=== PATIENT | male | born 1965 | race Caucasian/White ===

== ENCOUNTER 2022-02-13 08:34 | Inpatient (IN) | payer BC, OTHER ==
[~2022-02-13] VITALS: Ht 188 cm; Wt 119.5 kg
[2022-02-13 10:03] LABS: BASOPHILS # (AUTO) 0.1 X10'3 (0-0.2); BASOPHILS % (AUTO) 0.5 % (0-1); EOSINOPHILS # (AUTO) 0.6 X10'3 (0-0.9); EOSINOPHILS % (AUTO) 4.4 % (0-6); HEMATOCRIT 38.4 % (42.0-52.0); HEMOGLOBIN 12.6 g/dl (14.0-17.9); LYMPHOCYTES # (AUTO) 2.3 X10'3 (1.1-4.8); LYMPHOCYTES % (AUTO) 15.5 % (21-51); MEAN CORPUSCULAR HEMOGLOBIN 27.1 PG (27.0-31.0); MEAN CORPUSCULAR HGB CONC 32.7 g/dL (33.0-36.5); MEAN CORPUSCULAR VOLUME 82.7 FL (78-98); MEAN PLATELET VOLUME 8.7 FL (7.4-10.4); MONOCYTES # (AUTO) 1.2 X10'3 (0-0.9); MONOCYTES % (AUTO) 8.2 % (2-12); NEUTROPHILS # (AUTO) 10.4 X10'3 (1.8-7.7); NEUTROPHILS % (AUTO) 71.4 % (42-75); PLATELET COUNT 411 X10'3 (140-440); RED BLOOD COUNT 4.65 X10'6 (4.70-6.10); RED CELL DISTRIBUTION WIDTH 14.9 % (11.5-14.5); WHITE BLOOD COUNT 14.5 X10'3 (4.5-11.0)
[2022-02-13] MEDS ORDERED: CefTRIAXone 2gm/NS 100ml IVPB 100 ML IV ONE (10:10)
[2022-02-13 10:15] LABS: ALANINE AMINOTRANSFERASE 20 U/L (12-78); ALBUMIN 3.6 G/DL (3.4-5.0); ALBUMIN/GLOBULIN RATIO 0.8 (1.1-1.5); ALKALINE PHOSPHATASE 95 IU/L (46-116); ANION GAP 12 (8-16); ASPARTATE AMINO TRANSFERASE 11 U/L (10-37); BILIRUBIN,TOTAL 0.4 MG/DL (0.1-1.0); BLOOD UREA NITROGEN 27 MG/DL (7-18); BUN/CREATININE RATIO 21.3 (5.4-32.0); CALCIUM 9.1 MG/DL (8.5-10.1); CHLORIDE 108 MMOL/L (99-107); CREATININE 1.27 MG/DL (0.60-1.10); GLUCOSE 111 MG/DL (70-104); POTASSIUM 4.1 MMOL/L (3.5-5.1); SODIUM 144 MMOL/L (135-145); TOTAL CARBON DIOXIDE 23.7 MMOL/L (24-32); TOTAL PROTEIN 7.9 G/DL (6.4-8.2); eGFR 59 ML/MIN
[2022-02-13] MEDS ORDERED: morphine 4 MG/ML inj SYRINge IV ONE (10:30)
[2022-02-13] MEDS ORDERED: LORazepam 2 mg/ml vial IV ONE (10:30)
--- NOTE | 2022-02-13 11:05 | NUR ---
pt to ct
--- NOTE | 2022-02-13 11:10 | NUR ---
back from ct
[2022-02-13] MEDS ORDERED: vancomycin/NS 1 GM ADD-VANTAGE 250 ML IV ONE (12:55)
[2022-02-13] MEDS ORDERED: normal saline 1000ML IV soln IV ONE (12:55)
[2022-02-13] MEDS ORDERED: morphine 2 MG/ML inj. syringe IV PRN ×2 (13:05)
[2022-02-13] MEDS ORDERED: potassium CL 10mEq/100ml bag 100 ML IV PRN (13:05)
[2022-02-13] MEDS ORDERED: mag hydrox/Alum hydrox/simeth 30ml oral suspension PO PRN (13:05)
[2022-02-13] MEDS ORDERED: HYDROcodone/acetaminophen 5mg/325mg tablet PO PRN (13:05)
[2022-02-13] MEDS ORDERED: ondansetron/PF 4mg/2ml inj IV PRN (13:05)
[2022-02-13] MEDS ORDERED: POTASSIUM BICARB 20meq eff tab 20 MEQ TABLET.EFF PO PRN ×2 (13:05)
[2022-02-13] MEDS ORDERED: magnesium 4gm in 100ml NS 100 ML IV PRN (13:05)
[2022-02-13] MEDS ORDERED: magnesium hydroxide 30ml (MOM) UD suspension PO PRN (13:05)
[2022-02-13] MEDS ORDERED: acetaminophen 325mg tablet PO PRN (13:05)
[2022-02-13] MEDS ORDERED: magnesium 2GM in 50ml NS 50 ML IV PRN (13:05)
[2022-02-13] MEDS: normal saline 1000ml 1,000 ML IV SCH (13:34)
[2022-02-13] MEDS ORDERED: LOSA25TA96 PO (13:41)
[2022-02-13] MEDS: hydrALAZINE 20mg/ml inj. IV PRN (14:01)
[2022-02-13] MEDS: heparin, porcine 5000 units/ml vial SQ SCH (16:36)
--- NOTE | 2022-02-13 18:01 | NUR ---
called dr beltran regarding pt continued high blood pressure of 185/111 and no relief of pain after prn morphine was given. verbal orders received for 0.3mg clonidine x1 dose now for htn and 0.5mg of dilauded iv q4hrs prn mild-moderate pain and 1mg dilauded for severe pain q4h iv. orders placed as received
[2022-02-13] MEDS ORDERED: cloNIDine 0.1 mg tablet PO STA (18:03)
[2022-02-13] MEDS ORDERED: HYDROmorphone inj. 0.5 MG/0.5 ML DISP.SYRIN IV PRN (18:05)
[2022-02-13] MEDS: docusate sod 100mg capsule PO SCH (20:00)
[2022-02-13] MEDS: K and/or MAG REPLACEMENT MC SCH (20:00)
[2022-02-13] MEDS: piperacillin/tazo 4.5gm/100ml 100 ML IV SCH (20:03)
[2022-02-13] MEDS: HYDROmorphone 1 mg/ml syringe IV PRN (20:04)
--- NOTE | 2022-02-13 20:46 | NUR ---
PT PROVIDED MEDICATIONS AND MULTIMODAL PAIN MANAGMENT STRATEGIES. PT RESTING QUIETLY IN BED WITH . PT HAS NO COMPLAINTS AT THIS TIME. PT BP ALSO TRENDING MORE APPROPRIATELY WITH PAIN MANAGMENT AND MEDICINAL INTERVENTION PER DOCTOR.
[2022-02-13 23:20] VITALS: BP 164/112
[2022-02-14] MEDS ORDERED: vancomycin/NS 1 GM ADD-VANTAGE 250 ML IV SCH (01:00)
[2022-02-14] MEDS: normal saline 1000ml 1,000 ML IV SCH ×2 (02:03→17:51)
[2022-02-14] MEDS: HYDROmorphone 1 mg/ml syringe IV PRN ×3 (04:18→17:44)
[2022-02-14 06:00] VITALS: BP 130/67
[2022-02-14 06:00] LABS: BASOPHILS # (AUTO) 0.1 X10'3 (0-0.2); BASOPHILS % (AUTO) 0.7 % (0-1); EOSINOPHILS # (AUTO) 0.5 X10'3 (0-0.9); EOSINOPHILS % (AUTO) 4.2 % (0-6); HEMATOCRIT 31.3 % (42.0-52.0); HEMOGLOBIN 10.3 g/dl (14.0-17.9); LYMPHOCYTES # (AUTO) 2.6 X10'3 (1.1-4.8); LYMPHOCYTES % (AUTO) 20.7 % (21-51); MEAN CORPUSCULAR HEMOGLOBIN 27.5 PG (27.0-31.0); MEAN CORPUSCULAR VOLUME 83.3 FL (78-98); MEAN PLATELET VOLUME 9.2 FL (7.4-10.4); MONOCYTES % (AUTO) 7.8 % (2-12); NEUTROPHILS # (AUTO) 8.4 X10'3 (1.8-7.7); NEUTROPHILS % (AUTO) 66.6 % (42-75); PLATELET COUNT 318 X10'3 (140-440); RED BLOOD COUNT 3.75 X10'6 (4.70-6.10); RED CELL DISTRIBUTION WIDTH 14.4 % (11.5-14.5); WHITE BLOOD COUNT 12.7 X10'3 (4.5-11.0)
[2022-02-14 06:15] LABS: ALANINE AMINOTRANSFERASE 14 U/L (12-78); ALBUMIN 2.6 G/DL (3.4-5.0); ALBUMIN/GLOBULIN RATIO 0.7 (1.1-1.5); ALKALINE PHOSPHATASE 72 IU/L (46-116); ANION GAP 6 (8-16); ASPARTATE AMINO TRANSFERASE 8 U/L (10-37); BILIRUBIN,TOTAL 0.5 MG/DL (0.1-1.0); BLOOD UREA NITROGEN 13 MG/DL (7-18); BUN/CREATININE RATIO 13.5 (5.4-32.0); CALCIUM 7.7 MG/DL (8.5-10.1); CHLORIDE 109 MMOL/L (99-107); CREATININE 0.96 MG/DL (0.60-1.10); GLUCOSE 98 MG/DL (70-104); MAGNESIUM 1.8 MG/DL (1.5-2.4); POTASSIUM 3.8 MMOL/L (3.5-5.1); SODIUM 140 MMOL/L (135-145); TOTAL CARBON DIOXIDE 24.8 MMOL/L (24-32); TOTAL PROTEIN 6.1 G/DL (6.4-8.2); eGFR 82 ML/MIN
[2022-02-14] MEDS: K and/or MAG REPLACEMENT MC SCH ×2 (08:00→20:00)
[2022-02-14] MEDS ORDERED: cefTRIAXone 1g/NS 100ml IVPB 100 ML IV SCH (08:00)
[2022-02-14] MEDS: heparin, porcine 5000 units/ml vial SQ SCH ×4 (08:00→21:13)
[2022-02-14] MEDS: docusate sod 100mg capsule PO SCH ×2 (08:00→20:00)
[2022-02-14] MEDS: losartan 25mg tablet PO SCH (09:48)
[2022-02-14] MEDS: piperacillin/tazo 4.5gm/100ml 100 ML IV SCH (09:49)
[2022-02-14 10:00] VITALS: BP 171/97
[2022-02-14 18:00] VITALS: BP 189/104
--- NOTE | 2022-02-14 18:49 | NUR ---
Problems reprioritized. Patient report given, questions answered & plan of care reviewed with LUCIO Liriano.
--- NOTE | 2022-02-14 19:53 | NUR ---
pt states the guaze dressing on his sacral area usually has about 4 inch bloody drainage. will continue to report drainage to staff to document. RN at bedside. pt had biopsy earlier today and may have increased drainage. will notify RN of anything abnormal. pt refuses to allow assessment at this time. pt will have shower later tonight as well.
[2022-02-14] MEDS: HYDROcodone/acetaminophen 10/325mg tab PO PRN (21:09)
[2022-02-14 22:00] VITALS: BP 160/87
[2022-02-15] VITALS (9 sets, daily range): BP systolic 133–194; BP diastolic 73–111
[2022-02-15] MEDS ORDERED: VANCOMYCIN LEVEL IV ONE (00:30)
[2022-02-15] MEDS: normal saline 1000ml 1,000 ML IV SCH (02:24)
[2022-02-15] MEDS: HYDROcodone/acetaminophen 10/325mg tab PO PRN ×3 (05:33→21:35)
[2022-02-15 05:57] LABS: BASOPHILS % (AUTO) 0.6 % (0-1); EOSINOPHILS # (AUTO) 0.5 X10'3 (0-0.9); EOSINOPHILS % (AUTO) 5.4 % (0-6); HEMATOCRIT 34.7 % (42.0-52.0); LYMPHOCYTES # (AUTO) 1.6 X10'3 (1.1-4.8); LYMPHOCYTES % (AUTO) 18.4 % (21-51); MEAN CORPUSCULAR HEMOGLOBIN 26.1 PG (27.0-31.0); MEAN CORPUSCULAR HGB CONC 31.6 g/dL (33.0-36.5); MEAN CORPUSCULAR VOLUME 82.7 FL (78-98); MEAN PLATELET VOLUME 8.7 FL (7.4-10.4); MONOCYTES # (AUTO) 0.8 X10'3 (0-0.9); NEUTROPHILS # (AUTO) 5.9 X10'3 (1.8-7.7); NEUTROPHILS % (AUTO) 66.6 % (42-75); PLATELET COUNT 361 X10'3 (140-440); RED CELL DISTRIBUTION WIDTH 14.2 % (11.5-14.5); WHITE BLOOD COUNT 8.8 X10'3 (4.5-11.0)
[2022-02-15 06:15] LABS: ALANINE AMINOTRANSFERASE 13 U/L (12-78); ALBUMIN 2.7 G/DL (3.4-5.0); ALBUMIN/GLOBULIN RATIO 0.7 (1.1-1.5); ALKALINE PHOSPHATASE 77 IU/L (46-116); ANION GAP 8 (8-16); ASPARTATE AMINO TRANSFERASE 12 U/L (10-37); BILIRUBIN,TOTAL 0.2 MG/DL (0.1-1.0); BLOOD UREA NITROGEN 12 MG/DL (7-18); BUN/CREATININE RATIO 12.5 (5.4-32.0); CALCIUM 8.6 MG/DL (8.5-10.1); CHLORIDE 107 MMOL/L (99-107); CREATININE 0.96 MG/DL (0.60-1.10); GLUCOSE 108 MG/DL (70-104); MAGNESIUM 2.1 MG/DL (1.5-2.4); POTASSIUM 3.6 MMOL/L (3.5-5.1); SODIUM 142 MMOL/L (135-145); TOTAL CARBON DIOXIDE 26.6 MMOL/L (24-32); TOTAL PROTEIN 6.4 G/DL (6.4-8.2); eGFR 82 ML/MIN
--- NOTE | 2022-02-15 06:40 | NUR ---
Patient in room ORTHO 4007. I have received report from LUCIO Liriano and had the opportunity to ask questions and assume patient care.
[2022-02-15] MEDS: K and/or MAG REPLACEMENT MC SCH ×2 (08:00→21:35)
[2022-02-15] MEDS: docusate sod 100mg capsule PO SCH ×2 (09:13→21:34)
[2022-02-15] MEDS: losartan 25mg tablet PO SCH (09:14)
[2022-02-15] MEDS: heparin, porcine 5000 units/ml vial SQ SCH ×2 (09:15→15:48)
[2022-02-15] MEDS: hydrALAZINE 20mg/ml inj. IV PRN ×2 (09:16→15:48)
[2022-02-15] MEDS ORDERED: heparin sodium, porcine/PF 100unit/ml 5ML syringe ONE (13:26)
[2022-02-15] MEDS ORDERED: midazolam 1 mg/ML 2ml injection ONE ×2 (13:26→14:34)
[2022-02-15] MEDS ORDERED: fentaNYL/PF 50MCG/1 ML 2ML syringe ONE (13:26)
[2022-02-15] MEDS ORDERED: LIDOcaine 1%/PF 5ML 10 MG/ML VIAL ONE ×2 (13:26→14:54)
--- NOTE | 2022-02-15 13:50 | NUR ---
Pt transported to IR via sonam, accompanying. Belongings left in room 4002.
[2022-02-15] MEDS: HYDROmorphone 1 mg/ml syringe IV PRN (15:50)
[2022-02-15] MEDS ORDERED: PEG 3350/Na sulf,bicarb,Cl/KCl oral sol 4 liter bottle PO ONE (19:20)
[2022-02-16 04:00] VITALS: BP 167/92
[2022-02-16] MEDS: HYDROcodone/acetaminophen 10/325mg tab PO PRN (04:17)
[2022-02-16] MEDS: hydrALAZINE 20mg/ml inj. IV PRN ×2 (04:18→13:31)
--- NOTE | 2022-02-16 06:20 | NUR ---
reported to days. noted pt anticipates surgery today. NPO after CL breakfast
--- NOTE | 2022-02-16 06:36 | NUR ---
Patient in room ORTHO 4007. I have received report from LUCIO Liriano and had the opportunity to ask questions and assume patient care.
[2022-02-16] MEDS: docusate sod 100mg capsule PO SCH ×2 (07:02→20:00)
[2022-02-16] MEDS: heparin, porcine 5000 units/ml vial SQ SCH ×3 (07:02→16:00)
[2022-02-16 07:20] LABS: BASOPHILS # (AUTO) 0.1 X10'3 (0-0.2); BASOPHILS % (AUTO) 0.7 % (0-1); EOSINOPHILS # (AUTO) 0.4 X10'3 (0-0.9); EOSINOPHILS % (AUTO) 4.1 % (0-6); HEMATOCRIT 34.6 % (42.0-52.0); HEMOGLOBIN 11.7 g/dl (14.0-17.9); LYMPHOCYTES # (AUTO) 0.3 X10'3 (1.1-4.8); MEAN CORPUSCULAR HEMOGLOBIN 27.7 PG (27.0-31.0); MEAN CORPUSCULAR HGB CONC 33.9 g/dL (33.0-36.5); MEAN CORPUSCULAR VOLUME 81.9 FL (78-98); MEAN PLATELET VOLUME 8.8 FL (7.4-10.4); MONOCYTES # (AUTO) 0.8 X10'3 (0-0.9); NEUTROPHILS % (AUTO) 82.2 % (42-75); PLATELET COUNT 333 X10'3 (140-440); RED BLOOD COUNT 4.23 X10'6 (4.70-6.10); RED CELL DISTRIBUTION WIDTH 14.2 % (11.5-14.5); WHITE BLOOD COUNT 8.6 X10'3 (4.5-11.0)
[2022-02-16 07:49] LABS: ALANINE AMINOTRANSFERASE 19 U/L (12-78); ALBUMIN 3.1 G/DL (3.4-5.0); ALBUMIN/GLOBULIN RATIO 0.8 (1.1-1.5); ALKALINE PHOSPHATASE 81 IU/L (46-116); ANION GAP 10 (8-16); ASPARTATE AMINO TRANSFERASE 17 U/L (10-37); BILIRUBIN,TOTAL 0.3 MG/DL (0.1-1.0); BLOOD UREA NITROGEN 12 MG/DL (7-18); CALCIUM 8.7 MG/DL (8.5-10.1); CHLORIDE 104 MMOL/L (99-107); GLUCOSE 102 MG/DL (70-104); MAGNESIUM 1.7 MG/DL (1.5-2.4); POTASSIUM 3.5 MMOL/L (3.5-5.1); SODIUM 138 MMOL/L (135-145); TOTAL CARBON DIOXIDE 24.3 MMOL/L (24-32); TOTAL PROTEIN 7.2 G/DL (6.4-8.2); eGFR 78 ML/MIN
[2022-02-16] MEDS: K and/or MAG REPLACEMENT MC SCH (08:00)
[2022-02-16] MEDS: acetaminophen 325mg tablet PO PRN ×2 (08:31→14:59)
[2022-02-16] MEDS: losartan 25mg tablet PO SCH (08:32)
[2022-02-16 10:00] VITALS: BP 192/104
[2022-02-16 14:00] VITALS: BP 201/114
[2022-02-16] MEDS ORDERED: metroNIDAZOLE-Flagyl 500mg/NS 100 ML IV ONE (15:40)
[2022-02-16] MEDS ORDERED: LIDOcaine 1% W/epiNEPHrine 1:100,000 20ml vial ONE ×2 (15:41→21:16)
[2022-02-16] MEDS ORDERED: povidone-iodine 10% ointment 1 APPLIC APPLIC TP ONE (15:41)
[2022-02-16] MEDS ORDERED: tobramycin 40mg/ml inj ONE (15:41)
[2022-02-16] MEDS ORDERED: BUPIVAcaine/PF 2.5 mg/ml (0.25%) 30ml vial ONE ×2 (15:41→21:16)
[2022-02-16] MEDS ORDERED: CefTRIAXone 2000mg inj ONE (15:41)
--- NOTE | 2022-02-16 16:00 | NUR ---
report called to LUCIO Pacheco in recovery
[2022-02-16 16:01] VITALS: BP 201/114
--- NOTE | 2022-02-16 16:04 | NUR ---
pt transported to OR via hospital bed, belongings left in room 4007. present at bedside
[2022-02-16] MEDS ORDERED: morphine 4 MG/ML inj SYRINge IV PRN (16:35)
[2022-02-16] MEDS ORDERED: ringers solution, lacted 1,000 ML IV SCH (16:35)
[2022-02-16] MEDS ORDERED: morphine 2 MG/ML inj. syringe IV PRN (16:35)
[2022-02-16] MEDS ORDERED: meperidine/PF 25mg/ml syringe IV PRN ×3 (16:35)
[2022-02-16] MEDS ORDERED: proCHLORperazine 10 MG/2 ml inj IV PRN (16:35)
[2022-02-16] MEDS ORDERED: ondansetron/PF 4mg/2ml inj IV PRN (16:35)
[2022-02-16] MEDS: normal saline 1000ml 1,000 ML IV SCH (17:48)
--- NOTE | 2022-02-16 18:49 | NUR ---
Problems reprioritized. Patient report given, questions answered & plan of care reviewed with LUCIO Recinos.
--- NOTE | 2022-02-16 18:50 | NUR ---
I have received report from FLORENCIA VALDES and had the opportunity to ask questions. PATIENT IN OR AT THIS TIME FOR SURGERY
[2022-02-16] MEDS ORDERED: HYDROmorphone inj. 0.5 MG/0.5 ML DISP.SYRIN ONE (19:03)
[2022-02-16] MEDS: lisinopril 20mg tablet PO SCH (20:00)
[2022-02-16] MEDS ORDERED: MIDAZolam 1 MG/ML 5ML VIAL ONE (20:02)
[2022-02-16] MEDS ORDERED: propofol inj 20 ML IV ONE (20:03)
[2022-02-16] MEDS ORDERED: fentaNYL /PF 50mcg/ml 5ml ampule ONE (20:03)
[2022-02-16 20:20] VITALS: BP 208/131
[2022-02-16] MEDS ORDERED: rocuronium 10mg/ml inj IV ONE ×2 (21:45)
[2022-02-16] MEDS ORDERED: FENTANYL CITRATE/PF 50 MCG/1 ML VIAL ONE ×2 (23:41→23:42)
[2022-02-16] MEDS ORDERED: morphine 10mg/ml inj. ONE (23:41)
[2022-02-17] VITALS (27 sets, daily range): BP systolic 128–185; BP diastolic 61–106
[2022-02-17] MEDS ORDERED: neostigmine methylsulfate 1 MG/ML 10ml vial ONE (00:09)
[2022-02-17] MEDS ORDERED: glycopyrrolate 0.2mg/ml inj ONE (00:10)
--- NOTE | 2022-02-17 00:28 | NUR ---
Received from OR via BED, accompanied by Anesthesiologist DR WILLIAMSON and report given by Anesthesiologist AND ASSURANCE MANAGER INSURANCE. PT DROWSY, DENIES PAIN, ABDOMEN W/2 LAP SITES ON RIGHT SIDE W/DERMABOND CDI, COLOSTOMY W/BAG, NO DRAINAGE, STOMA PINK. ROBLERO CATHETER TO GRAVITY DRAINAGE W/YELLOW URINE IN DRAINAGE BAG. SCD'S APPLIED. Addendum: 02/17/22 at 0056 by Alice Galindo RN Amended: Links added.
[2022-02-17] MEDS ORDERED: naloxone 0.4 mg/ml inj IV PRN (01:40)
[2022-02-17] MEDS ORDERED: ondansetron/PF 4mg/2ml inj IV PRN (01:40)
[2022-02-17] MEDS: HYDROmorph/NS 0.2 mg/ml PCA 100 ML IV SCH ×11 (02:24→23:00)
--- NOTE | 2022-02-17 02:38 | NUR ---
Report called to receiving nurse. Transferred via BED, NO Belongings. RECEIVING RN AT BEDSIDE TO RECEIVE PT, BLL, CALL LIGHT GIVEN, SIDE RAILS. Special Issues communicated to receiving nurse. YES. Addendum: 02/17/22 at 0253 by Alice Galindo RN Amended: Links added.
--- NOTE | 2022-02-17 02:45 | NUR ---
PATIENT BACK TO ROOM 4007 FROM RECOVERY ROOM AFTER COLONOSCOPY, LAP ASSISTED COLOSTOMY, AND I&D OF JEFFREY RECTAL ABSCESS BY DR. HA. PLACED COMFORTABLE IN BED. VITAL SIGNS MONITORED.
[2022-02-17] MEDS ORDERED: HYDROmorph/NS 0.2 mg/ml PCA 100 ML IV SCH (03:00)
[2022-02-17] MEDS: normal saline 1000ml 1,000 ML IV SCH (03:00)
[2022-02-17] MEDS: K and/or MAG REPLACEMENT MC SCH ×3 (03:17→20:00)
[2022-02-17] MEDS: hydrALAZINE 20mg/ml inj. IV PRN ×2 (03:30→14:50)
[2022-02-17] MEDS: heparin, porcine 5000 units/ml vial SQ SCH ×4 (03:34→18:06)
[2022-02-17] MEDS: potassium CL 20mEq in D5-1/2NS 1,000 ML IV SCH ×3 (06:00→20:26)
--- NOTE | 2022-02-17 06:30 | NUR ---
Problems reprioritized. Patient report given, questions answered & plan of care reviewed with TERRIE RN.
--- NOTE | 2022-02-17 06:54 | NUR ---
Patient in room ORTHO 4007. I have received report from Grisel VALDES and had the opportunity to ask questions and assume patient care.
[2022-02-17 07:17] LABS: BASOPHILS % (AUTO) 0.4 % (0-1); EOSINOPHILS % (AUTO) 0 % (0-6); HEMATOCRIT 32.4 % (42.0-52.0); HEMOGLOBIN 10.8 g/dl (14.0-17.9); LYMPHOCYTES % (AUTO) 11.6 % (21-51); MEAN CORPUSCULAR HEMOGLOBIN 27.5 PG (27.0-31.0); MEAN CORPUSCULAR HGB CONC 33.4 g/dL (33.0-36.5); MEAN CORPUSCULAR VOLUME 82.3 FL (78-98); MEAN PLATELET VOLUME 8.6 FL (7.4-10.4); MONOCYTES # (AUTO) 0.8 X10'3 (0-0.9); MONOCYTES % (AUTO) 9.7 % (2-12); NEUTROPHILS # (AUTO) 6.4 X10'3 (1.8-7.7); NEUTROPHILS % (AUTO) 78.3 % (42-75); PLATELET COUNT 310 X10'3 (140-440); RED BLOOD COUNT 3.93 X10'6 (4.70-6.10); RED CELL DISTRIBUTION WIDTH 14.5 % (11.5-14.5); WHITE BLOOD COUNT 8.2 X10'3 (4.5-11.0)
[2022-02-17 07:33] LABS: ALANINE AMINOTRANSFERASE 25 U/L (12-78); ALBUMIN 2.6 G/DL (3.4-5.0); ALBUMIN/GLOBULIN RATIO 0.7 (1.1-1.5); ALKALINE PHOSPHATASE 63 IU/L (46-116); ANION GAP 12 (8-16); ASPARTATE AMINO TRANSFERASE 26 U/L (10-37); BILIRUBIN,TOTAL 0.2 MG/DL (0.1-1.0); BLOOD UREA NITROGEN 11 MG/DL (7-18); BUN/CREATININE RATIO 10.9 (5.4-32.0); CALCIUM 7.8 MG/DL (8.5-10.1); CHLORIDE 103 MMOL/L (99-107); CREATININE 1.01 MG/DL (0.60-1.10); GLUCOSE 106 MG/DL (70-104); MAGNESIUM 1.5 MG/DL (1.5-2.4); POTASSIUM 3.4 MMOL/L (3.5-5.1); SODIUM 139 MMOL/L (135-145); TOTAL CARBON DIOXIDE 24.5 MMOL/L (24-32); TOTAL PROTEIN 6.4 G/DL (6.4-8.2); eGFR 77 ML/MIN
[2022-02-17] MEDS ORDERED: lisinopril 20mg tablet PO SCH (08:00)
[2022-02-17] MEDS: docusate sod 100mg capsule PO SCH ×2 (09:22→20:26)
[2022-02-17] MEDS: lisinopril 20mg tablet PO SCH ×2 (09:25→20:27)
[2022-02-17] MEDS: cloNIDine 0.1 mg tablet PO SCH ×3 (09:25→20:27)
--- NOTE | 2022-02-17 10:37 | NUR ---
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 Pt now POD #1 s/p colonoscopy, laparoscopic colostomy, and I&D of left buttocks. Pt would benefit from colostomy nutrition therapy education once more stable. Pt on a clear liquid diet post-op, previously on a regular diet and documented with mostly 100% PO intake throughout LOS however currently unable to meet estimated nutrient needs d/t limitations on clear liquid diet. Recommend advancing to low fiber diet as medically indicated. No documented BM post-op. Pt receiving routine bowel care. Will continue to follow closely. Recommendations: 1) Advance to low fiber diet as medically indicated 2) Bowel care per MD 3) Scaled weight this admit; subsequent weekly scaled weights 4) Colostomy nutrition therapy education once appropriate Addendum: 02/17/22 at [address] Amended: Links added.
[2022-02-17] MEDS: acetaminophen 325mg tablet PO PRN (14:57)
--- NOTE | 2022-02-17 15:47 | NUR ---
Patient order for cadd changed was unable to find a super user, notified child care centre director of need to change setting and was given detailed instructions on the change process. Lost all information in the process.
--- NOTE | 2022-02-17 16:12 | NUR ---
Patient bedding changed and patient showered at this time.
--- NOTE | 2022-02-17 16:53 | NUR ---
Dressing changed at this time with patient family in room. Patient had moderated drainage from amalia drain, serosanguineous drainage noted.
--- NOTE | 2022-02-17 18:22 | NUR ---
Problems reprioritized. Patient report given, questions answered & plan of care reviewed with Grisel VALDSE.
--- NOTE | 2022-02-17 18:30 | NUR ---
Patient in room ORTH[facility] 4007. I have received report from TERRIE VALDES and had the opportunity to ask questions and assume patient care.
[2022-02-18] MEDS: HYDROmorph/NS 0.2 mg/ml PCA 100 ML IV SCH ×12 (01:00→22:44)
[2022-02-18] MEDS: heparin, porcine 5000 units/ml vial SQ SCH ×3 (01:10→16:00)
--- NOTE | 2022-02-18 06:26 | NUR ---
Problems reprioritized. Patient report given, questions answered & plan of care reviewed with TERRIE RN.
[2022-02-18 06:41] LABS: BASOPHILS % (AUTO) 0.4 % (0-1); EOSINOPHILS % (AUTO) 0.1 % (0-6); HEMATOCRIT 34.4 % (42.0-52.0); HEMOGLOBIN 11.1 g/dl (14.0-17.9); LYMPHOCYTES # (AUTO) 1.3 X10'3 (1.1-4.8); LYMPHOCYTES % (AUTO) 20.4 % (21-51); MEAN CORPUSCULAR HEMOGLOBIN 26.4 PG (27.0-31.0); MEAN CORPUSCULAR HGB CONC 32.4 g/dL (33.0-36.5); MEAN CORPUSCULAR VOLUME 81.5 FL (78-98); MONOCYTES # (AUTO) 0.6 X10'3 (0-0.9); MONOCYTES % (AUTO) 10.3 % (2-12); NEUTROPHILS # (AUTO) 4.3 X10'3 (1.8-7.7); NEUTROPHILS % (AUTO) 68.8 % (42-75); PLATELET COUNT 292 X10'3 (140-440); RED BLOOD COUNT 4.22 X10'6 (4.70-6.10); RED CELL DISTRIBUTION WIDTH 14.4 % (11.5-14.5); WHITE BLOOD COUNT 6.3 X10'3 (4.5-11.0)
[2022-02-18 06:48] LABS: ALANINE AMINOTRANSFERASE 21 U/L (12-78); ALBUMIN 2.7 G/DL (3.4-5.0); ALBUMIN/GLOBULIN RATIO 0.7 (1.1-1.5); ALKALINE PHOSPHATASE 61 IU/L (46-116); ANION GAP 7 (8-16); ASPARTATE AMINO TRANSFERASE 24 U/L (10-37); BILIRUBIN,TOTAL 0.3 MG/DL (0.1-1.0); BLOOD UREA NITROGEN 11 MG/DL (7-18); BUN/CREATININE RATIO 12.5 (5.4-32.0); CALCIUM 8.3 MG/DL (8.5-10.1); CHLORIDE 101 MMOL/L (99-107); CREATININE 0.88 MG/DL (0.60-1.10); GLUCOSE 107 MG/DL (70-104); MAGNESIUM 1.8 MG/DL (1.5-2.4); POTASSIUM 3.4 MMOL/L (3.5-5.1); SODIUM 135 MMOL/L (135-145); TOTAL CARBON DIOXIDE 27.1 MMOL/L (24-32); TOTAL PROTEIN 6.6 G/DL (6.4-8.2); eGFR 90 ML/MIN
[2022-02-18 06:49] VITALS: BP 151/95
--- NOTE | 2022-02-18 07:11 | NUR ---
Patient in room ORTHO 4007. I have received report from Grisel VALDES and had the opportunity to ask questions and assume patient care.
[2022-02-18] MEDS: K and/or MAG REPLACEMENT MC SCH ×2 (08:00→20:00)
[2022-02-18] MEDS: lisinopril 20mg tablet PO SCH ×2 (08:38→20:16)
[2022-02-18] MEDS: cloNIDine 0.1 mg tablet PO SCH ×3 (08:38→20:15)
[2022-02-18] MEDS: docusate sod 100mg capsule PO SCH ×2 (08:39→20:15)
[2022-02-18] MEDS: potassium CL 20mEq in D5-1/2NS 1,000 ML IV SCH (08:41)
[2022-02-18 10:00] VITALS: BP 179/96
[2022-02-18] MEDS: acetaminophen 325mg tablet PO PRN (10:33)
[2022-02-18] MEDS: hydrALAZINE 20mg/ml inj. IV PRN (10:38)
[2022-02-18] MEDS ORDERED: potassium Cl 20 mEq SR tablet PO STA (12:55)
[2022-02-18] MEDS: lactose-reduced food (Ensure Enlive) - 237ml bottle PO SCH (18:00)
--- NOTE | 2022-02-18 18:58 | NUR ---
Problems reprioritized. Patient report given, questions answered & plan of care reviewed with Chani VALDES.
[2022-02-18 19:30] VITALS: BP 154/95
[2022-02-18] MEDS: apixaban 2.5mg tablet PO SCH (20:16)
[2022-02-18 23:29] VITALS: BP 156/92
[2022-02-19] MEDS: HYDROmorph/NS 0.2 mg/ml PCA 100 ML IV SCH ×4 (01:00→07:00)
[2022-02-19] MEDS: PCA waste documentation MC SCH ×2 (01:02→11:05)
[2022-02-19] MEDS: normal saline 1000ml 1,000 ML IV SCH (01:40)
[2022-02-19 06:00] VITALS: BP 157/83
[2022-02-19 06:18] LABS: ALBUMIN 2.5 G/DL (3.4-5.0); ANION GAP 6 (8-16); BLOOD UREA NITROGEN 11 MG/DL (7-18); BUN/CREATININE RATIO 12.6 (5.4-32.0); CALCIUM 8.2 MG/DL (8.5-10.1); CHLORIDE 99 MMOL/L (99-107); CREATININE 0.87 MG/DL (0.60-1.10); GLUCOSE 95 MG/DL (70-104); POTASSIUM 3.7 MMOL/L (3.5-5.1); SODIUM 132 MMOL/L (135-145); TOTAL CARBON DIOXIDE 26.6 MMOL/L (24-32); eGFR > 90 ML/MIN
--- NOTE | 2022-02-19 06:35 | NUR ---
Problems reprioritized. Patient report given, questions answered & plan of care reviewed with dannielle Bellamy.
[2022-02-19] MEDS: potassium CL 20mEq in D5-1/2NS 1,000 ML IV SCH (07:00)
--- NOTE | 2022-02-19 07:01 | NUR ---
Patient in room ORTHO 4007. I have received report from Chani VALDES and had the opportunity to ask questions and assume patient care.
[2022-02-19] MEDS: K and/or MAG REPLACEMENT MC SCH (08:00)
[2022-02-19 08:02] VITALS: BP_SYST 157
[2022-02-19] MEDS: apixaban 2.5mg tablet PO SCH (08:02)
[2022-02-19] MEDS: lisinopril 20mg tablet PO SCH (08:02)
[2022-02-19] MEDS: docusate sod 100mg capsule PO SCH (08:03)
[2022-02-19] MEDS: cloNIDine 0.1 mg tablet PO SCH (08:03)
[2022-02-19] MEDS: lactose-reduced food (Ensure Enlive) - 237ml bottle PO SCH (08:04)
[2022-02-19] MEDS: HYDROcodone/acetaminophen 10/325mg tab PO PRN (08:26)
[2022-02-19] MEDS ORDERED: ciprofloxacin 250mg tablet PO SCH (09:41)
[2022-02-19] MEDS ORDERED: metroNIDAZOLE 500mg tablet PO SCH (09:42)
[2022-02-19] MEDS ORDERED: CLON0.1T2 PO (09:52)
[2022-02-19] MEDS ORDERED: HYDR-3972 PO (09:52)
[2022-02-19] MEDS ORDERED: LISI20TA28 PO (09:52)
[2022-02-19] MEDS ORDERED: CIPR250T4 PO (09:52)
[2022-02-19] MEDS ORDERED: METR-159 PO (09:52)
--- NOTE | 2022-02-19 10:05 | NUR ---
Message: Josesito Morales [id number] re:[id number] Devonte Jacinto Patient states she takes a give of 20 Units Lantus in AM and on our protocol. Would you like it changed to her normal dosing. Thanks Josesito.
[2022-02-19] MEDS ORDERED: APIX2.5T PO (10:09)
--- NOTE | 2022-02-19 10:30 | NUR ---
PATIENT DISCHARGED HOME AT THIS TIME. PATIENT LEFT WITH ALL BELONGINGS. FAMILY WAS IN ROOM DURING DISCHARGE. IV OUT AT THIS TIME INTACT CANULA AND MINIMAL BLEEDING. PATIENT EXPRESSED VERBAL UNDERSTANDING OF DISCHARGE TEACHING. PATIENT TAKEN OUT TO PRIVATE VEHICLE IN WHEELCHAIR. Addendum: 02/19/22 at 1803 by Tonio Oliver RN PATIENT HAD TROUBLE WITH OSTOMY AND DRESSING RETURNED FOR 3 OSTOMY FROM FLOOR AND 3 6X6 OPTIFOAMS FOR DRESSING CARE. CHECKED OUT TO FLOOR STOCK BECAUSE PATIENT WAS NO LONGER IN THE SYSTEM.
--- NOTE | 2022-02-19 11:05 | NUR ---
Tubing and bag for Dilaudid cadd disposed of in pharmaceutical Waste, witness by Isidra VALDES
== END 2022-02-19 10:45 | disposition home or self-care (01) | DRG 330 ==
LOC: ER 08:34 → EEVIPCON 08:34 → ED HOLD 13:11 → ORTHO 4S 23:14
PROVIDERS: ADMIT Family Medicine; ATTEND Family Medicine
PROC: 0DBQ3ZX Excision of Anus, Percutaneous Approach, Diagnostic (ICD-10-PCS; 2022-02-14)
PROC: 07B Lymphatic and Hemic Systems, Excision (ICD-10-PCS; 2022-02-15)
PROC: 0JH63XZ Insertion of Tunneled Vascular Access Device into Chest Subcutaneous Tissue and Fascia, Percutaneous Approach (ICD-10-PCS; 2022-02-15)
PROC: 02HV33Z Insertion of Infusion Device into Superior Vena Cava, Percutaneous Approach (ICD-10-PCS; 2022-02-15)
PROC: B548ZZA Ultrasonography of Superior Vena Cava, Guidance (ICD-10-PCS; 2022-02-15)
PROC: 0DBH8ZZ Excision of Cecum, Via Natural or Artificial Opening Endoscopic (ICD-10-PCS; 2022-02-16)
PROC: 0W3P8ZZ Control Bleeding in Gastrointestinal Tract, Via Natural or Artificial Opening Endoscopic (ICD-10-PCS; 2022-02-16)
PROC: 0Y9100Z Drainage of Left Buttock with Drainage Device, Open Approach (ICD-10-PCS; 2022-02-16)
PROC: 0D1N4Z4 Bypass Sigmoid Colon to Cutaneous, Percutaneous Endoscopic Approach (ICD-10-PCS; principal; 2022-02-16 20:03)
DX: C21.0 Malignant neoplasm of anus, unspecified (principal); D62 Acute posthemorrhagic anemia; N17.9 Acute kidney failure, unspecified; L02.31 Cutaneous abscess of buttock; I10 Essential (primary) hypertension; Z20.822 Contact with and (suspected) exposure to COVID-19; K62.89 Other specified diseases of anus and rectum; K42.9 Umbilical hernia without obstruction or gangrene; R16.0 Hepatomegaly, not elsewhere classified; R59.0 Localized enlarged lymph nodes; K63.5 Polyp of colon; E86.0 Dehydration; Z79.01 Long term (current) use of anticoagulants; Z79.899 Other long term (current) drug therapy; Z80.52 Family history of malignant neoplasm of bladder; Z82.3 Family history of stroke; Z82.49 Family history of ischemic heart disease and other diseases of the circulatory system
CPT/HCPCS: 36561; 38505; 99291; 99292; Z7506; Z7508; 36415; 71045; 71250; 74176; 76937; 76942; 80048; 80053; 82948; 83605; 83735; 84145; 85025; 85610; 85651; 87040; 87081; 87635; 93005; 99152; 99153; A4618; A6253; A7000; C1758; C1769; C1773; C1788; C1894; G0378; J0360; J0696; J1170; J1642; J1644; J2250; J2270; J2274; J2543; J2704; J2710; J3010; J3260; J3370; J3480; J3490; J7030; J7120

== ENCOUNTER 2023-10-29 12:26 | Outpatient (CLI) | payer OTHER ==
[~2023-10-29 12:26] MED LIST: APIX2.5T PO; CIPR250T4 PO; CLON0.1T2 PO; HYDR-3972 PO; LISI20TA28 PO; METR-159 PO
[2023-10-29] MEDS ORDERED: iohexol 300mg/ml 100ml inj. ONE (12:38)
== END 2023-10-29 23:59 | disposition home or self-care (01) ==
LOC: RAD 12:26
DX: C21.0 Malignant neoplasm of anus, unspecified (principal); K43.5 Parastomal hernia without obstruction or gangrene; Z98.890 Other specified postprocedural states
CPT/HCPCS: 74177; J3490; Q9967

== ENCOUNTER 2023-12-17 10:37 | Outpatient (CLI) | payer OTHER | END 2023-12-17 23:59 | disposition home or self-care (01) | LOC: LAB 10:37 | PROVIDERS: ATTEND Nurse Practitioner | DX: Z01.812 Encounter for preprocedural laboratory examination (principal) | CPT/HCPCS: 36415; 83036 ==

== ENCOUNTER 2024-01-02 09:54 | Outpatient (CLI) | payer OTHER ==
[2024-01-02 11:11] LABS: BASOPHILS % (AUTO) 0.6 % (0-1); EOSINOPHILS # (AUTO) 0.2 X10'3 (0-0.9); EOSINOPHILS % (AUTO) 3.8 % (0-6); HEMATOCRIT 46.1 % (42.0-52.0); HEMOGLOBIN 15.3 g/dl (14.0-17.9); LYMPHOCYTES # (AUTO) 1.1 X10'3 (1.1-4.8); LYMPHOCYTES % (AUTO) 16.5 % (21-51); MEAN CORPUSCULAR HEMOGLOBIN 29.1 PG (27.0-31.0); MEAN CORPUSCULAR HGB CONC 33.1 g/dL (33.0-36.5); MEAN CORPUSCULAR VOLUME 87.9 FL (78-98); MEAN PLATELET VOLUME 9.4 FL (7.4-10.4); MONOCYTES # (AUTO) 0.5 X10'3 (0-0.9); MONOCYTES % (AUTO) 8.2 % (2-12); NEUTROPHILS # (AUTO) 4.5 X10'3 (1.8-7.7); NEUTROPHILS % (AUTO) 70.9 % (42-75); PLATELET COUNT 242 X10'3 (140-440); RED BLOOD COUNT 5.24 X10'6 (4.70-6.10); RED CELL DISTRIBUTION WIDTH 14.2 % (11.5-14.5); WHITE BLOOD COUNT 6.4 X10'3 (4.5-11.0)
[2024-01-02 11:21] LABS: ALANINE AMINOTRANSFERASE 24 U/L (12-78); ALBUMIN 3.4 G/DL (3.4-5.0); ALBUMIN/GLOBULIN RATIO 0.9 (1.1-1.5); ALKALINE PHOSPHATASE 84 IU/L (46-116); ANION GAP 11 (8-16); ASPARTATE AMINO TRANSFERASE 19 U/L (10-37); BILIRUBIN,TOTAL 0.4 MG/DL (0.1-1.0); BLOOD UREA NITROGEN 15 MG/DL (7-18); BUN/CREATININE RATIO 14.6 (10.0-20.0); CALCIUM 8.7 MG/DL (8.5-10.1); CHLORIDE 106 MMOL/L (99-107); CREATININE 1.03 MG/DL (0.60-1.10); GLUCOSE 98 MG/DL (70-104); POTASSIUM 3.5 MMOL/L (3.5-5.1); SODIUM 143 MMOL/L (135-145); TOTAL CARBON DIOXIDE 25.8 MMOL/L (24-32); eGFR 75 ML/MIN
== END 2024-01-02 23:59 | disposition home or self-care (01) ==
LOC: LAB 09:54
PROVIDERS: ATTEND Surgery
DX: Z01.818 Encounter for other preprocedural examination (principal); K43.5 Parastomal hernia without obstruction or gangrene; I51.7 Cardiomegaly; R00.1 Bradycardia, unspecified
CPT/HCPCS: 36415; 80053; 80307; 85025; 93005

== ENCOUNTER 2024-10-21 06:05 | Outpatient (CLI) | payer OTHER | END 2024-10-21 23:59 | disposition home or self-care (01) | LOC: MRI02 06:05 | PROVIDERS: ATTEND Nurse Practitioner | DX: M47.817 Spondylosis without myelopathy or radiculopathy, lumbosacral region (principal); M51.379 Other intervertebral disc degeneration, lumbosacral region without mention of lumbar back pain or lower extremity pain; M48.07 Spinal stenosis, lumbosacral region; M25.78 Osteophyte, vertebrae; M54.50 Low back pain, unspecified; G89.29 Other chronic pain | CPT/HCPCS: 72148 ==

== ENCOUNTER 2024-11-04 08:40 | Outpatient (CLI) | payer OTHER | END 2024-11-04 23:59 | disposition home or self-care (01) | LOC: RAD 08:40 | PROVIDERS: ATTEND Surgery | DX: Z01.818 Encounter for other preprocedural examination (principal); K43.9 Ventral hernia without obstruction or gangrene | CPT/HCPCS: 74176 ==

== ENCOUNTER 2024-12-18 12:33 | Outpatient (CLI) | payer OTHER ==
[2024-12-18 13:01] LABS: MEAN PLATELET VOLUME 8.7 FL (7.4-10.4)
[2024-12-18 13:03] LABS: BASOPHILS # (AUTO) 0.1 X10'3 (0-0.2); BASOPHILS % (AUTO) 0.7 % (0-1); EOSINOPHILS # (AUTO) 0.1 X10'3 (0-0.9); EOSINOPHILS % (AUTO) 0.9 % (0-6); HEMATOCRIT 48.2 % (42.0-52.0); HEMOGLOBIN 16.3 g/dl (14.0-17.9); LYMPHOCYTES # (AUTO) 0.9 X10'3 (1.1-4.8); MEAN CORPUSCULAR HEMOGLOBIN 30.7 PG (27.0-31.0); MEAN CORPUSCULAR HGB CONC 33.9 g/dL (33.0-36.5); MEAN CORPUSCULAR VOLUME 90.5 FL (78-98); MONOCYTES # (AUTO) 0.7 X10'3 (0-0.9); MONOCYTES % (AUTO) 7.7 % (2-12); NEUTROPHILS # (AUTO) 7.3 X10'3 (1.8-7.7); NEUTROPHILS % (AUTO) 80.7 % (42-75); PLATELET COUNT 253 X10'3 (140-440); RED BLOOD COUNT 5.33 X10'6 (4.70-6.10); RED CELL DISTRIBUTION WIDTH 14.3 % (11.5-14.5); WHITE BLOOD COUNT 9.1 X10'3 (4.5-11.0)
[2024-12-18 13:15] LABS: ALANINE AMINOTRANSFERASE 69 U/L (12-78); ALBUMIN 3.9 G/DL (3.4-5.0); ALKALINE PHOSPHATASE 92 IU/L (46-116); ANION GAP 10 (8-16); ASPARTATE AMINO TRANSFERASE 42 U/L (10-37); BILIRUBIN,TOTAL 0.8 MG/DL (0.1-1.0); BLOOD UREA NITROGEN 17 MG/DL (7-18); BUN/CREATININE RATIO 13.3 (10.0-20.0); CALCIUM 8.8 MG/DL (8.5-10.1); CHLORIDE 102 MMOL/L (99-107); CREATININE 1.28 MG/DL (0.60-1.10); GLUCOSE 83 MG/DL (70-104); POTASSIUM 3.6 MMOL/L (3.5-5.1); SODIUM 138 MMOL/L (135-145); TOTAL CARBON DIOXIDE 26.3 MMOL/L (24-32); TOTAL PROTEIN 7.8 G/DL (6.4-8.2); eGFR 58 ML/MIN
[2024-12-18 13:16] LABS: HEMOGLOBIN A1C 5.2 % (4.5-6.2)
== END 2024-12-18 23:59 | disposition home or self-care (01) ==
LOC: RAD 12:33
PROVIDERS: ATTEND Surgery
DX: Z01.818 Encounter for other preprocedural examination (principal); Z51.81 Encounter for therapeutic drug level monitoring; Z13.1 Encounter for screening for diabetes mellitus; K43.9 Ventral hernia without obstruction or gangrene; I21.09 ST elevation (STEMI) myocardial infarction involving other coronary artery of anterior wall
CPT/HCPCS: 36415; 80053; 80307; 83036; 85025; 93005

== ENCOUNTER 2025-01-20 08:21 | Outpatient (CLI) | payer OTHER ==
[2025-01-20 08:49] LABS: BASOPHILS % (AUTO) 0.6 % (0-1); EOSINOPHILS # (AUTO) 0.3 X10'3 (0-0.9); EOSINOPHILS % (AUTO) 4.1 % (0-6); HEMOGLOBIN 13.7 g/dl (14.0-17.9); LYMPHOCYTES # (AUTO) 0.9 X10'3 (1.1-4.8); LYMPHOCYTES % (AUTO) 12.5 % (21-51); MEAN CORPUSCULAR HEMOGLOBIN 29.7 PG (27.0-31.0); MEAN CORPUSCULAR HGB CONC 33.4 g/dL (33.0-36.5); MEAN CORPUSCULAR VOLUME 89.2 FL (78-98); MEAN PLATELET VOLUME 8.9 FL (7.4-10.4); MONOCYTES # (AUTO) 0.7 X10'3 (0-0.9); MONOCYTES % (AUTO) 8.9 % (2-12); NEUTROPHILS # (AUTO) 5.6 X10'3 (1.8-7.7); NEUTROPHILS % (AUTO) 73.9 % (42-75); PLATELET COUNT 302 X10'3 (140-440); RED CELL DISTRIBUTION WIDTH 13.6 % (11.5-14.5); WHITE BLOOD COUNT 7.5 X10'3 (4.5-11.0)
== END 2025-01-20 23:59 | disposition home or self-care (01) ==
LOC: RAD 08:21
PROVIDERS: ATTEND Colon & Rectal Surgery
DX: C21.8 Malignant neoplasm of overlapping sites of rectum, anus and anal canal (principal)
CPT/HCPCS: 36415; 85025

== ENCOUNTER 2025-01-28 09:55 | Outpatient (CLI) | payer OTHER, BC ==
[~2025-01-28 09:55] MED LIST changes: +iohexol 300mg/ml 100ml inj. ONE
--- NOTE | 2025-01-28 11:15 | RADIOLOGY REPORT ---
Indication: GENERALIZED ABDOMINAL PAIN,HX OF VENTRAL HERNIA REPAIR Technique: CT axial images of the abdomen and pelvis are obtained with intravenous contrast. Coronal and sagittal reformats were obtained. Radiation Dose Information: CTDI volume is 35.3 mGy. Dose-length product is 1855 mGy*cm Comparison: 11/04/2024 FINDINGS: Lung bases demonstrate no pleural effusion. Adrenal glands, spleen and pancreas unremarkable. No enhancing hepatic lesion. No CT evidence for ch olelithiasis. No hydronephrosis. Stomach is partially distended. Small bowel loops are normal in caliber. Sigmoidectomy. Left colostomy. Peristomal hernia containing small bowel loops measuring 9.1 x 4.8 cm. Moderate volume stool within the colon. Normal appendix. Abdominal aortic atherosclerotic disease. Bladder is relatively nondistended. No free pelvic fluid. N o inguinal lymphadenopathy. Rdlb-ej-hznalcow bilateral sacroiliac degenerative joint disease. Moderate lumbar degenerative disc d isease. There is a right ventral wall collection which measures 10.6 x 2.9 cm with abdominal mesh along the p osterior aspect of the collection. There is fluid within the collection with surrounding inflammator y stranding. Surgical drainage catheter within the collection. IMPRESSION: 1. Right abdominal ventral wall rim enhancing collection measuring 10.6 x 2.9 cm with surgical drain in the collection. This could represent an abscess, postoperative collection. There is surgical mes h along the posterior aspect of the collection, likely from previous ventral wall hernia repair. 2. Sigmoidectomy. Left colostomy. Peristomal hernia containing small bowel loops measuring 9.1 x 4.8 cm. 3. Other findings as described.
== END 2025-01-29 23:59 | disposition home or self-care (01) ==
LOC: RAD 09:55
PROVIDERS: ATTEND Nurse Practitioner
DX: K31.89 Other diseases of stomach and duodenum (principal); R10.84 Generalized abdominal pain; Z98.890 Other specified postprocedural states; Z87.19 Personal history of other diseases of the digestive system; I70.0 Atherosclerosis of aorta; M46.1 Sacroiliitis, not elsewhere classified
CPT/HCPCS: 74177; Q9967

== ENCOUNTER 2025-02-04 13:52 | Outpatient (CLI) | payer OTHER, BC ==
[~2025-02-04 13:52] MED LIST changes: -iohexol 300mg/ml 100ml inj. ONE
[2025-02-04 14:32] LABS: BASOPHILS # (AUTO) 0.1 X10'3 (0-0.2); BASOPHILS % (AUTO) 0.7 % (0-1); EOSINOPHILS # (AUTO) 0.2 X10'3 (0-0.9); EOSINOPHILS % (AUTO) 2.9 % (0-6); HEMATOCRIT 40.4 % (42.0-52.0); HEMOGLOBIN 13.6 g/dl (14.0-17.9); LYMPHOCYTES % (AUTO) 12.8 % (21-51); MEAN CORPUSCULAR HEMOGLOBIN 29.5 PG (27.0-31.0); MEAN CORPUSCULAR HGB CONC 33.6 g/dL (33.0-36.5); MEAN CORPUSCULAR VOLUME 87.8 FL (78-98); MEAN PLATELET VOLUME 8.8 FL (7.4-10.4); MONOCYTES # (AUTO) 0.6 X10'3 (0-0.9); MONOCYTES % (AUTO) 8.2 % (2-12); NEUTROPHILS # (AUTO) 5.9 X10'3 (1.8-7.7); NEUTROPHILS % (AUTO) 75.4 % (42-75); PLATELET COUNT 355 X10'3 (140-440); RED BLOOD COUNT 4.61 X10'6 (4.70-6.10); WHITE BLOOD COUNT 7.8 X10'3 (4.5-11.0)
== END 2025-02-04 23:59 | disposition home or self-care (01) ==
LOC: RAD 13:52
PROVIDERS: ATTEND Surgery
DX: Z98.890 Other specified postprocedural states (principal)
CPT/HCPCS: 36415; 85025; 85651; 86140

== ENCOUNTER 2025-02-24 08:47 | Outpatient (CLI) | payer OTHER, BC ==
[2025-02-24 09:12] LABS: BASOPHILS # (AUTO) 0.1 X10'3 (0-0.2); BASOPHILS % (AUTO) 0.7 % (0-1); EOSINOPHILS # (AUTO) 0.2 X10'3 (0-0.9); EOSINOPHILS % (AUTO) 2.9 % (0-6); HEMATOCRIT 42.8 % (42.0-52.0); HEMOGLOBIN 14.2 g/dl (14.0-17.9); LYMPHOCYTES # (AUTO) 0.9 X10'3 (1.1-4.8); LYMPHOCYTES % (AUTO) 11.6 % (21-51); MEAN CORPUSCULAR HGB CONC 33.2 g/dL (33.0-36.5); MEAN CORPUSCULAR VOLUME 87.2 FL (78-98); MEAN PLATELET VOLUME 8.5 FL (7.4-10.4); MONOCYTES # (AUTO) 0.7 X10'3 (0-0.9); MONOCYTES % (AUTO) 8.1 % (2-12); NEUTROPHILS # (AUTO) 6.2 X10'3 (1.8-7.7); NEUTROPHILS % (AUTO) 76.7 % (42-75); PLATELET COUNT 266 X10'3 (140-440); RED BLOOD COUNT 4.91 X10'6 (4.70-6.10); RED CELL DISTRIBUTION WIDTH 14.8 % (11.5-14.5); WHITE BLOOD COUNT 8.1 X10'3 (4.5-11.0)
== END 2025-02-24 23:59 | disposition home or self-care (01) ==
LOC: LAB 08:47
PROVIDERS: ATTEND Nurse Practitioner
DX: G89.18 Other acute postprocedural pain (principal); Z87.19 Personal history of other diseases of the digestive system; Z98.890 Other specified postprocedural states
CPT/HCPCS: 36415; 85025; 86140

== ENCOUNTER 2025-03-02 15:12 | Outpatient (CLI) | payer OTHER, BC ==
[2025-03-02 15:34] LABS: BASOPHILS # (AUTO) 0.1 X10'3 (0-0.2); BASOPHILS % (AUTO) 0.8 % (0-1); EOSINOPHILS # (AUTO) 0.3 X10'3 (0-0.9); EOSINOPHILS % (AUTO) 3.3 % (0-6); LYMPHOCYTES # (AUTO) 1.4 X10'3 (1.1-4.8); LYMPHOCYTES % (AUTO) 16.5 % (21-51); MEAN CORPUSCULAR HGB CONC 33.3 g/dL (33.0-36.5); MEAN CORPUSCULAR VOLUME 87.2 FL (78-98); MEAN PLATELET VOLUME 8.3 FL (7.4-10.4); MONOCYTES # (AUTO) 0.7 X10'3 (0-0.9); MONOCYTES % (AUTO) 8.5 % (2-12); NEUTROPHILS # (AUTO) 5.8 X10'3 (1.8-7.7); NEUTROPHILS % (AUTO) 70.9 % (42-75); PLATELET COUNT 323 X10'3 (140-440); RED BLOOD COUNT 4.82 X10'6 (4.70-6.10); RED CELL DISTRIBUTION WIDTH 14.4 % (11.5-14.5); WHITE BLOOD COUNT 8.2 X10'3 (4.5-11.0)
== END 2025-03-02 23:59 | disposition home or self-care (01) ==
LOC: LAB 15:12
PROVIDERS: ATTEND Surgery
DX: Z98.890 Other specified postprocedural states (principal)
CPT/HCPCS: 36415; 85025; 85651; 86140

== ENCOUNTER 2025-03-09 12:58 | Outpatient (CLI) | payer OTHER, BC ==
[2025-03-09 13:34] LABS: BASOPHILS % (AUTO) 0.1 % (0-1); EOSINOPHILS # (AUTO) 0.2 X10'3 (0-0.9); EOSINOPHILS % (AUTO) 3.1 % (0-6); HEMATOCRIT 42.7 % (42.0-52.0); HEMOGLOBIN 13.9 g/dl (14.0-17.9); LYMPHOCYTES # (AUTO) 1.1 X10'3 (1.1-4.8); LYMPHOCYTES % (AUTO) 15.7 % (21-51); MEAN CORPUSCULAR HEMOGLOBIN 28.3 PG (27.0-31.0); MEAN CORPUSCULAR HGB CONC 32.5 g/dL (33.0-36.5); MEAN CORPUSCULAR VOLUME 86.8 FL (78-98); MEAN PLATELET VOLUME 8.4 FL (7.4-10.4); MONOCYTES # (AUTO) 0.6 X10'3 (0-0.9); MONOCYTES % (AUTO) 9.4 % (2-12); NEUTROPHILS # (AUTO) 4.9 X10'3 (1.8-7.7); NEUTROPHILS % (AUTO) 71.7 % (42-75); PLATELET COUNT 352 X10'3 (140-440); RED BLOOD COUNT 4.92 X10'6 (4.70-6.10); WHITE BLOOD COUNT 6.8 X10'3 (4.5-11.0)
== END 2025-03-09 23:59 | disposition home or self-care (01) ==
LOC: RAD 12:58
PROVIDERS: ATTEND Surgery
DX: Z48.89 Encounter for other specified surgical aftercare (principal); Z98.890 Other specified postprocedural states
CPT/HCPCS: 36415; 85025; 85651; 86140

== ENCOUNTER 2025-03-16 13:20 | Outpatient (CLI) | payer OTHER, BC ==
[2025-03-16 15:52] LABS: BASOPHILS % (AUTO) 0.8 % (0-1); EOSINOPHILS # (AUTO) 0.3 X10'3 (0-0.9); HEMATOCRIT 44.5 % (42.0-52.0); HEMOGLOBIN 14.6 g/dl (14.0-17.9); LYMPHOCYTES # (AUTO) 1.1 X10'3 (1.1-4.8); LYMPHOCYTES % (AUTO) 17.5 % (21-51); MEAN CORPUSCULAR HGB CONC 32.7 g/dL (33.0-36.5); MEAN CORPUSCULAR VOLUME 85.6 FL (78-98); MEAN PLATELET VOLUME 9.4 FL (7.4-10.4); MONOCYTES # (AUTO) 0.5 X10'3 (0-0.9); MONOCYTES % (AUTO) 7.4 % (2-12); NEUTROPHILS # (AUTO) 4.5 X10'3 (1.8-7.7); NEUTROPHILS % (AUTO) 70.3 % (42-75); PLATELET COUNT 295 X10'3 (140-440); RED CELL DISTRIBUTION WIDTH 14.1 % (11.5-14.5); WHITE BLOOD COUNT 6.5 X10'3 (4.5-11.0)
== END 2025-03-16 23:59 | disposition home or self-care (01) ==
LOC: RAD 13:20
PROVIDERS: ATTEND Surgery
DX: Z98.890 Other specified postprocedural states (principal); Z87.19 Personal history of other diseases of the digestive system
CPT/HCPCS: 36415; 85025; 85651; 86140

== ENCOUNTER 2025-03-23 16:50 | Outpatient (CLI) | payer OTHER, BC ==
[2025-03-23 17:16] LABS: MEAN PLATELET VOLUME 8.9 FL (7.4-10.4); RED CELL DISTRIBUTION WIDTH 14.2 % (11.5-14.5)
[2025-03-23 17:30] LABS: CREATININE 1.16 MG/DL (0.60-1.10); TOTAL CARBON DIOXIDE 30.9 MMOL/L (24-32); eGFR 65 ML/MIN
[2025-03-23 18:35] LABS: CRP-CARDIAC RISK 79.900 MG/L
== END 2025-03-23 23:59 | disposition home or self-care (01) ==
LOC: LAB 16:50
PROVIDERS: ATTEND Nurse Practitioner
DX: Z98.890 Other specified postprocedural states (principal); Z87.19 Personal history of other diseases of the digestive system
CPT/HCPCS: 36415; 80053; 85025; 85651; 86140

== ENCOUNTER 2025-03-30 11:40 | Outpatient (CLI) | payer OTHER, BC ==
[2025-03-30 12:01] LABS: MEAN PLATELET VOLUME 7.9 FL (7.4-10.4); RED CELL DISTRIBUTION WIDTH 14.8 % (11.5-14.5)
== END 2025-03-30 23:59 | disposition home or self-care (01) ==
LOC: LAB 11:40
PROVIDERS: ATTEND Nurse Practitioner
DX: Z98.890 Other specified postprocedural states (principal); Z87.19 Personal history of other diseases of the digestive system
CPT/HCPCS: 36415; 85025; 86140

== ENCOUNTER 2025-05-25 10:21 | Outpatient (CLI) | payer BC, OTHER ==
[2025-05-25 10:58] LABS: MEAN PLATELET VOLUME 8.6 FL (7.4-10.4); RED CELL DISTRIBUTION WIDTH 16.7 % (11.5-14.5)
== END 2025-05-25 23:59 | disposition home or self-care (01) ==
LOC: RAD 10:21
PROVIDERS: ATTEND Nurse Practitioner
DX: T81.89XD Other complications of procedures, not elsewhere classified, subsequent encounter (principal); Z87.19 Personal history of other diseases of the digestive system; Z98.890 Other specified postprocedural states; X58.XXXD Exposure to other specified factors, subsequent encounter
CPT/HCPCS: 36415; 85025; 86140